=== PATIENT | male | born 1995 | race Caucasian/White ===

== ENCOUNTER 2020-01-23 19:45 | Emergency (ER) | payer MEDICAID ==
[~2020-01-23] VITALS: Ht 185.4 cm; Wt 81.7 kg
[2020-01-23] MEDS ORDERED: HYDROcodone/APAP 5/325 TABLET PO ONE ×2 (20:00→21:00)
[2020-01-23] MEDS ORDERED: HYDROcodone/APAP 5/325 TABLET ONE ×2 (20:01→20:56)
[2020-01-23] MEDS ORDERED: NEOSPORIN OINT. PKT 1 PACKET ONE (20:02)
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
--- NOTE | 2020-01-23 21:04 | NUR ---
PT DECLINED 2ND DOSE OF NORCO.
--- NOTE | 2020-01-23 21:11 | NUR ---
SHOULDER IMMOBILIZER PLACED PER EDT.
[2020-01-23 21:21] VITALS: BP 123/89
== END 2020-01-23 21:23 | disposition home or self-care (01) ==
LOC: ED 20:45
DX: S42.012A Anterior displaced fracture of sternal end of left clavicle, initial encounter for closed fracture (principal); S43.102A Unspecified dislocation of left acromioclavicular joint, initial encounter; F17.200 Nicotine dependence, unspecified, uncomplicated; V29.9XXA Motorcycle rider (driver) (passenger) injured in unspecified traffic accident, initial encounter; Y93.89 Activity, other specified; Y92.410 Unspecified street and highway as the place of occurrence of the external cause; Y99.8 Other external cause status
CPT/HCPCS: 99283